=== PATIENT | female | born 1940 | race Caucasian/White ===

== ENCOUNTER → 2016-07-09 | Outpatient (CLI) | payer MEDICARE, BC ==
[~2016-07-09] MED LIST: ALDACTAZIDE PO; CIPRO PO; COZAAR100 MG PO; FLAGYL PO; LANSOPRAZOLE30 MG PO; LIPITOR PO; MED FOR CHOLESTEROL; MEDROL4 MG PO; MOBIC PO; NEXIUM PO; TYLENOL #3 PO; VICODIN 5/1 TAB 5/50 PO; VOLTAREN75 MG PO; ZOFRAN ODT4 MG SL
--- NOTE | ~2016-07-09 | MY11 ---
[facility] A Service [facility] RADIOLOGY TEXT RESULTS PATIENT: JOHNATHON BERMAN LOCATION: [facility] : 42 UNIT #: [id number] AGE: [address]: Jose L Grey MD SEX: F ORDER DR: [id number] [address] [address] [id number] O MR#: [id number] Acc #: [id number] NAME: JOHNATHON BERMAN : 1940 SEX: F STUDY DATE/TIME: 07/09/2016 11:46 UNIT: [facility] ROOM: STUDY DESCRIPTION: MY Mammogram Screening Dig Thomas Attending Physician: Jose L Grey M.D. Referring Physician: Jose L Grey M.D. Ordering Physician: Jose L Grey M.D. Primary Care Physician: Jose L Grey M.D. MEDICAL IMAGING REPORT This report is preliminary unless electronic signature is present. EXAM Bilateral digital screening mammogram with CAD, 07/09/2016. INDICATION 75-year-old female for routine screening. No reported problems. No personal or family history of breast cancer. History of cyst aspiration on the left with presumedly benign results. TECHNIQUE CC and MLO views of the breast were obtained and reviewed with an FDA-approved CAD device. COMPARISON 07/07/2015, 01/17/2014, 05/29/2012 FINDINGS Breast parenchyma is heterogeneously dense. This degrades sensitivity of screening mammography. The pattern is unchanged. There is no new dominant, nodule, mass or suspicious cluster of microcalcifications. Benign calcifications are present. IMPRESSION Benign screening mammogram. 1 year followup recommended. Patients over the age of 40 are entered into a reminder system with target due date for the next mammogram. A result letter will also be sent to the patient. BIRADS: 2 Benign finding. [facility] A Service of [facility] RADIOLOGY TEXT RESULTS PATIENT: JOHNATHON BERMAN LOCATION: [facility] : 42 UNIT #: [id number] AGE: [address]: Jose L Grey MD SEX: F ORDER DR: Dictated by... Rodrigo Krause M.D. THIS IS AN ELECTRONICALLY VERIFIED REPORT Rodrigo Krause M.D. at 07/09/2016 5:06 PM CELIA/more TD: 07/09/2016 15:47 JOB #: [id number] MEDICAL IMAGING REPORT
== END | disposition home or self-care (01) ==
LOC: SMAM 11:14
DX: Z12.31 Encounter for screening mammogram for malignant neoplasm of breast (principal); Z98.890 Other specified postprocedural states
CPT/HCPCS: G0202

== ENCOUNTER → 2016-10-19 | Outpatient (CLI) | payer MEDICARE, BC ==
--- NOTE | ~2016-10-19 | CT4 ---
[facility] A Service [facility] RADIOLOGY TEXT RESULTS PATIENT: JOHNATHON BERMAN LOCATION: [facility] : 41 UNIT #: [id number] AGE: [address]: SHEBA REZA SEX: F ORDER DR: [id number] [address] [address] [id number] O MR#: [id number] Acc #: [id number] NAME: JOHNATHON BERMAN : 1940 SEX: F STUDY DATE/TIME: 10/19/2016 8:18 UNIT: [facility] ROOM: STUDY DESCRIPTION: CT Abd and Pelv Wo Cont Attending Physician: Sheba Reza Referring Physician: Tobias Reza Aprn Primary Care Physician: Jose L Grey M.D. MEDICAL IMAGING REPORT This report is preliminary unless electronic signature is present. EXAM CT abdomen and pelvis INDICATIONS Left lower quadrant abdominal pain for [address] of the abdomen and pelvis without contrast. Coronal and sagittal reconstructions were obtained. This CT exam was performed with one or more of the following radiation dose reduction techniques: automatic exposure control, adjustment of mA and/or kV according to patient size, and iterative reconstruction. COMPARISON CT abdomen and pelvis dated 09/25/2014 and 11/10/2012 FINDINGS There is a large hiatal hernia containing the majority of gastric fundus. This results in some atelectasis in the medial left lower lobe and medial right lower lobe. No pericardial or pleural effusion. Noncontrast evaluation of the solid abdominal organs are within normal limits. The gallbladder is surgically absent. No intrahepatic or extrahepatic biliary dilatation. There is borderline enlargement of a few small bowel loops in the mid abdomen near the umbilicus. These measure up to 3 cm. There is gradual tapering of the bowel loops in the distal small bowel without a definitive transition site. Please correlate for any signs or symptoms of an early small bowel obstruction. If present, consider followup abdominal radiographs or repeat CT scanning if symptoms worsen. There is extensive diverticulosis without diverticulitis. [facility] A Service [facility] RADIOLOGY TEXT RESULTS PATIENT: JOHNATHON BERMAN LOCATION: [facility] : 42 UNIT #: [id number] AGE: [address]: SHEBA REZA SEX: F ORDER DR: The abdominal aorta is normal in caliber. Pelvis: No pelvic mass. The uterus and ovaries are presumed surgically absent. There is a small indirect right inguinal hernia without complicating features. Degenerative changes are noted throughout the lumbar spine. IMPRESSION 1. Borderline dilated loops of small bowel without a focal transition site to suggest a small bowel obstruction. If the patient's symptoms increase, consider followup radiograph and/or repeat CT scan with contrast to further evaluate. 2. Diverticulosis without diverticulitis. 3. A large hiatal hernia. Dictated by... Baljeet Ogden M.D. THIS IS AN ELECTRONICALLY VERIFIED REPORT Baljeet Ogden M.D. at 10/19/2016 1:45 PM PHILLY/bowen TD: 10/19/2016 11:34 JOB #: [id number] MEDICAL IMAGING REPORT Page 1 of 1
== END | disposition home or self-care (01) ==
LOC: SCT 08:05
DX: K57.92 Diverticulitis of intestine, part unspecified, without perforation or abscess without bleeding (principal); K57.90 Diverticulosis of intestine, part unspecified, without perforation or abscess without bleeding; K44.9 Diaphragmatic hernia without obstruction or gangrene
CPT/HCPCS: 74176